=== PATIENT | female | born 1945 | race Caucasian/White ===

== ENCOUNTER → 2016-08-14 | Day surgery (SDC) | payer MEDICARE ==
[~2016-08-14] VITALS: Ht 180.3 cm; Wt 77.0 kg
[~2016-08-14] MED LIST: ASPI1TAB69 PO; CALC600T13 PO; CYAN1TAB24; CYCLOPENTOLATE HCL 1% OPHT SOLN 2 ML BTL ONE; FLURBIPROFEN 0.03% OPHT SOLN 2.5 ML BTL ONE; FOSA70TA PO; HYALURONIDASE/LIDOCAINE/EPINEPHRINE/BUPIVACAINE 6 ML SYR ONE; HYOS0.128 PO; LIDOCAINE HCL 1% 30 ML VIAL ONE; LIDOCAINE HCL 2% PF 5 ML VIAL ONE; MIRA33504 PO; PHENYLEPHRINE HCL 10% OPTH SOLN 5 ML BTL ONE; PROPARACAINE HCL 0.5% OPHT SOLN 15 ML BTL ONE; PROPOFOL 200 MG/20 ML AMP ONE; SODIUM CHLORID 0.9% 500 ML INJ 500 ML ONE; TOBRAMYCIN/DEXAMETHASONE OPTH OINT 3.5 GM TUBE ONE; TROPICAMIDE 1% OPHT SOLN 15 ML BTL ONE
[2016-08-14 07:20] VITALS: BP 141/94; PULSE 59; RESP 16; TEMP 98.3; O2SAT 97
[2016-08-14 07:25] VITALS: PULSE 59
[2016-08-14 08:00] VITALS: PULSE 59
[2016-08-14 08:22] VITALS: PULSE 52
[2016-08-14 09:00] VITALS: TEMP 97.9
[2016-08-14 09:15] VITALS: BP 133/84; PULSE 59; RESP 14; O2SAT 99
--- NOTE | 2016-08-18 10:24 | MP ---
cc: AIDEN STILL M.D. DATE OF SURGERY: 08/14/2016 [facility] [id number] PREOPERATIVE DIAGNOSIS Visually significant cataract, left eye. POSTOPERATIVE DIAGNOSIS Visually significant cataract, left eye. OPERATION Phacoemulsification with posterior chamber lens implantation, left eye. SURGEON Aiden Still MD ANESTHESIA Retrobulbar with MAC. COMPLICATIONS None. PROCEDURE After informed consent was obtained, the patient was brought into the operative suite and placed on appropriate monitors by the Anesthesia Service. The patient had received a prior retrobulbar injection of local anesthetic by the Anesthesia Service in the holding area. The patient's operative eye was then prepped and draped in the usual sterile fashion. A wire lid speculum was placed. A paracentesis incision was made in the peripheral cornea with a 1 mm nas keratome. The anterior chamber was filled with viscoelastic. The anterior chamber was then entered through a stepped, clear corneal incision using a sharp 3 mm nas keratome. A circular tear capsulorrhexis was then made with a bent needle cystitome. Following hydrodissection of the lens nucleus with balanced saline, phacoemulsification of the nucleus was performed using a modified chopping technique. The remaining cortex was removed with irrigation/aspiration. The prior two procedures were both performed using the handpieces of the [employer] phaco unit. The capsular bag was then filled with viscoelastic. The intraocular lens was then injected into the capsular bag and positioned. The type of intraocular lens and its power can be found elsewhere in this chart. The remaining viscoelastic was then removed from the anterior chamber with the IA handpiece. The anterior chamber was reformed with balanced saline. The wound was then closed securely with stromal hydration. It was found to be watertight to an intraocular pressure of at least 30 mmHg by palpation. A small amount of balanced salt solution was then removed through the paracentesis site and the intraocular pressure at the end of the case was approximately 20 by palpation. All drapes were then removed. TobraDex ointment was then placed in the eye, which was closed beneath a semi-pressure patch dressing. The patient tolerated this procedure well and left the operating room awake and alert. The patient is to follow-up in my office in the morning. MD GAVIN Lopez/SURYA /9:38 AM /10:20 AM
== END | disposition home or self-care (01) ==
LOC: PHSDC 06:27
PROVIDERS: ATTEND Optometrist Occupational Vision
DX: H25.812 Combined forms of age-related cataract, left eye (principal)
CPT/HCPCS: 00142; 66984; J7040; V2632

== ENCOUNTER → 2017-08-06 | Day surgery (SDC) | payer MEDICARE ==
[~2017-08-06] VITALS: Ht 177.8 cm; Wt 76.5 kg
[~2017-08-06] MED LIST changes: +ASPI1TAB57 PO; -ASPI1TAB69 PO; -CALC600T13 PO; +CALCTAB94 PO; +CHLORHEXIDINE GLUCONATE 2 % 1 PACK (2 CLOTHS) TOPICAL PRN; +CYCLOPENTOLATE HCL 1% OPHT SOLN 2 ML BTL LEFT EYE SCH; -CYCLOPENTOLATE HCL 1% OPHT SOLN 2 ML BTL ONE; +FLURBIPROFEN 0.03% OPHT SOLN 2.5 ML BTL LEFT EYE SCH; -FLURBIPROFEN 0.03% OPHT SOLN 2.5 ML BTL ONE; -FOSA70TA PO; +HYALURONIDASE/LIDOCAINE/BUPIVACAINE 5 ML SYR ONE; +HYALURONIDASE/LIDOCAINE/BUPIVACAINE 5 ML SYR RIGHT EYE ONE; -HYALURONIDASE/LIDOCAINE/EPINEPHRINE/BUPIVACAINE 6 ML SYR ONE; -HYOS0.128 PO; +LACTATED RINGER'S 1000 ML IV PRN; -LIDOCAINE HCL 1% 30 ML VIAL ONE; +LIDOCAINE HCL 1% PF 30 ML VIAL ONE; +LIDOCAINE HCL 2% JELLY 5 ML SYRINGE TOPICAL ONE; -LIDOCAINE HCL 2% PF 5 ML VIAL ONE; +MIRA3350 PO; -MIRA33504 PO; +PHENYLEPHRINE HCL 10% OPTH SOLN 5 ML BTL LEFT EYE SCH; -PHENYLEPHRINE HCL 10% OPTH SOLN 5 ML BTL ONE; +POVIDONE IODINE 5% (ANTISEPSIS KIT) 4 APPLICATIONS EACH NARE PRN; +PROPARACAINE HCL 0.5% OPHT SOLN 15 ML BTL LEFT EYE ONE; -PROPARACAINE HCL 0.5% OPHT SOLN 15 ML BTL ONE; +PROPARACAINE HCL 0.5% OPHT SOLN 15 ML BTL RIGHT EYE ONE; +TROPICAMIDE 1% OPHT SOLN 15 ML BTL LEFT EYE SCH; -TROPICAMIDE 1% OPHT SOLN 15 ML BTL ONE
[2017-08-06 06:40] VITALS: PULSE 54
[2017-08-06] MEDS: FLURBIPROFEN 0.03% OPHT SOLN 2.5 ML BTL RIGHT EYE SCH ×4 (06:40→06:55)
[2017-08-06] MEDS: TROPICAMIDE 1% OPHT SOLN 15 ML BTL RIGHT EYE SCH ×4 (06:40→06:55)
[2017-08-06] MEDS: CYCLOPENTOLATE HCL 1% OPHT SOLN 2 ML BTL RIGHT EYE SCH ×4 (06:40→06:55)
[2017-08-06] MEDS: PHENYLEPHRINE HCL 10% OPTH SOLN 5 ML BTL RIGHT EYE SCH ×4 (06:40→06:55)
[2017-08-06 07:01] VITALS: PULSE 52
[2017-08-06 08:48] VITALS: BP 117/75; PULSE 65; RESP 16; TEMP 98; O2SAT 98
--- NOTE | 2017-08-06 10:01 | MP ---
cc: Aiden Alcantar MD DATE OF OPERATION: 08/06/2017 [facility] # [id number] PREOPERATIVE DIAGNOSIS: Visually significant cataract right eye. POSTOPERATIVE DIAGNOSIS: Visually significant cataract right eye. OPERATION: Phacoemulsification with posterior chamber lens implantation, right eye. SURGEON: Aiden Alcantar MD ANESTHESIA: Retrobulbar with MAC. COMPLICATIONS: None. PROCEDURE: After informed consent was obtained, the patient was brought into the operative suite and placed on appropriate monitors by the Anesthesia Service. The patient had received a prior retrobulbar injection of local anesthetic by the Anesthesia Service in the holding area. The patient's operative eye was then prepped and draped in the usual sterile fashion. A wire lid speculum was placed. A paracentesis incision was made in the peripheral cornea with a 1 mm nas keratome. The anterior chamber was filled with viscoelastic. The anterior chamber was then entered through a stepped, clear corneal incision using a sharp 3 mm nas keratome. A circular tear capsulorrhexis was then made with a bent needle cystitome. Following hydrodissection of the lens nucleus with balanced saline, phaco-emulsification of the nucleus was performed using a modified chopping technique. The remaining cortex was removed with irrigation/aspiration. The prior two procedures were both performed using the handpieces of the [employer] phaco unit. The capsular bag was then filled with viscoelastic. The intraocular lens was then injected into the capsular bag and positioned. The type of intraocular lens and its power can be found elsewhere in this chart. The remaining viscoelastic was then removed from the anterior chamber with the IA handpiece. The anterior chamber was reformed with balanced saline. The wound was then closed securely with stromal hydration. It was found to be watertight to an intraocular pressure of at least 30 mmHg by palpation. A small amount of balanced salt solution was then removed through the paracentesis site and the intraocular pressure at the end of the case was approximately 20 by palpation. All drapes were then removed. TobraDex ointment was then placed in the eye, which was closed beneath a semi-pressure patch dressing. The patient tolerated this procedure well and left the operating room awake and alert. The patient is to follow-up in my office in the morning. MD NILSON Lopez , 09:49 AM , 09:59 AM
== END | disposition home or self-care (01) ==
LOC: PHSDC 06:10
PROVIDERS: ATTEND Optometrist Occupational Vision
DX: H25.811 Combined forms of age-related cataract, right eye (principal)
CPT/HCPCS: 00142; 66984; J7040; V2632